=== PATIENT | female | born 1970 | race Caucasian/White ===

== ENCOUNTER → 2023-11-19 | Outpatient (CLI) | payer BC ==
[2023-11-19 16:07] LABS: BUN/Creat Ratio 17.43 Ratio (12.00-20.00); Blood Urea Nitrogen 12.2 mg/dL (9.0-27.0); Calcium 9.8 mg/dL (8.7-10.3); Carbon Dioxide 25.3 mmol/L (21.6-31.8); Chloride 102 mmol/L (96-109); Glucose 103 mg/dL (70-110); Potassium 4.1 mmol/L (3.5-5.5); Sodium 140 mmol/L (135-145)
[2023-11-19 16:22] LABS: Basophils # (A) 0.12 X 10*3/uL (0.00-0.10); Basophils % (A) 1.6 %; Eosinophils % (A) 1.3 %; HCT 44.3 % (37.2-46.3); HGB 14.1 g/dL (12.0-15.0); Lymphocytes # (A) 2.79 X 10*3/uL (0.90-5.00); Lymphocytes % (A) 36.3 %; MCH 27.9 pg (27.0-32.0); MCHC 31.8 g/dL (32.0-37.0); MCV 87.5 FL (80.0-97.0); Monocytes # (A) 0.56 X 10*3/uL (0.20-1.00); Monocytes % (A) 7.3 %; NRBC Per 100 WBC 0 X 10*3/uL (0.00-0.01); Neutrophils # (A) 4.08 X 10*3/uL (1.80-7.70); Neutrophils % (A) 53.1 %; Platelet Count 345 X 10*3/uL (140-440); RBC 5.06 X 10*6/uL (4.10-5.20); RDW 13.5 % (11.5-14.5); WBC 7.68 X 10*3/uL (4.50-10.00)
== END | disposition home or self-care (01) ==
LOC: LABWHC1 10:42
PROVIDERS: ATTEND Urology
DX: Z01.812 Encounter for preprocedural laboratory examination (principal); N20.0 Calculus of kidney
CPT/HCPCS: 36415; 80048; 85025

== ENCOUNTER → 2023-11-19 | Outpatient (CLI) | payer BC ==
--- NOTE | 2023-11-20 07:54 | XR ---
EXAMINATION TYPE: XR KUB DATE OF EXAM: 11/19/2023 COMPARISON: NONE HISTORY: Pain TECHNIQUE: One view abdominal series FINDINGS: The osseous structures are intact. The bowel gas pattern is nonspecific. Lung bases are clear. Right kidney: There is a 1.8 cm right renal pelvic calcification. There is a 4 mm mid pole right allison l calculus. Left kidney, there are 3 calcifications in the left kidney the largest measuring 3 mm. No suspicious calcifications along the paraspinal line. Calcifications in the pelvis are likely vascu lar. Calcification overlying the right superior pubic ramus likely outside the course of the syste m. Arthropathy of the hips. Mild degenerative change lumbosacral junction. IMPRESSION: 1. Bilateral nephrolithiasis. The largest is seen involving the right renal pelvis measuring 1.8 cm.
== END | disposition home or self-care (01) ==
LOC: RADXRMAIN 08:34
PROVIDERS: ATTEND Urology
DX: N20.0 Calculus of kidney (principal)
CPT/HCPCS: 74018

== ENCOUNTER 2023-11-20 10:27 | Day surgery (SDC) | payer BC ==
--- NOTE | 2023-11-19 21:59 | P.GSHP ---
History of Present Illness H&P Date: 11/19/23 Chief Complaint: Right hydronephrosis The patient is a 53-year-old white female with a history of urolithiasis. She states that her calculi are of calcium composition, and that she has undergone successful ESWL in the past. She has recently experienced vague right-sided dis comfort as well as urinary urgency. Ultrasound showed evidence of right hydronephrosis due to a UPJ calculus. KUB x-ray reveals a 10 x 19 mm right UPJ calculus at the level of L-2. I had a lengthy discussion with the patient regarding alternative treatment options, namely extracorporal shockwave lithotripsy (ESWL) versus ureteroscopy with laser lithotripsy. After reviewing the pros and cons of each in great detail, the patient has elected to undergo the latter. - Constitutional Constitutional: Denies chills, Denies fever - Gastrointestinal Gastrointestinal: Denies nausea, Denies vomiting - Genitourinary (Female) Genitourinary: Reports kidney stones, Denies dysuria, Denies hematuria Past Medical History Past Medical History: Diabetes Mellitus, Hypertension Additional Past Medical History / Comment(s): ovarian cyst, endometriosis pre diabetic, kidney stones History of Any Multi-Drug Resistant Organisms: None Reported Past Surgical History: Hysterectomy, Uterine Ablation Additional Past Surgical History / Comment(s): rt oophorectomy, fibroids removed from uterus Past Anesthesia/Blood Transfusion Reactions: Motion Sickness, Postoperative Nausea & Vomiting (PONV) Additional Past Anesthesia/Blood Transfusion Reaction / Comment(s): took longer to come out Smoking Status: Never smoker - Past Family History Mother Family Medical History: No Reported History Brother(s) Family Medical History: Cancer Additional Family Medical History / Comment(s): prostate Medications and Allergies Home Medications Medication Instructions Recorded Confirmed Type Atorvastatin Calcium 10 mg PO DAILY 11/19/23 11/19/23 History Multivitamins, Thera [Multivitamin 1 tab PO DAILY 11/19/23 11/19/23 History (formulary)] metFORMIN HCL 1,000 mg PO BID 11/19/23 11/19/23 History Allergies Allergy/AdvReac Type Severity Reaction Status Date / Time latex Allergy Itching Verified 11/19/23 10:46 Surgical - Exam - General well developed, well nourished, no distress - Neck no masses, trachea midline - Respiratory normal respiratory effort - Abdomen Abdomen: soft, non tender, no guarding, no rigid, no rebound - Psychiatric oriented to time, oriented to person, oriented to place, speech is normal, memory intact Results - Imaging Abdominal x-ray: report reviewed, image reviewed US - kidney/bladder: report reviewed Assessment and Plan (1) Calculus of kidney Status: Acute Code(s): N20.0 - CALCULUS OF KIDNEY SNOMED Code(s): 00370959 (2) Hydronephrosis with renal and ureteral calculous obstruction Status: Acute Code(s): N13.2 - HYDRONEPHROSIS WITH RENAL AND URETERAL CALCULOUS OBSTRUCTION SNOMED Code(s): 089305125 Plan: Cystoscopy, right retrograde pyelogram, right ureteroscopy with Holmium laser lithotripsy and possible stone basketing, right ureteral stent insertion. The procedure has been reviewed in detail with the patient. She has been made aware of potential risks, which include anesthesia, bleeding, infection, and ureteral injury. She is also aware of the possible need for a secondary procedure, given the stone burden.
[2023-11-20] MEDS: LACTATED RINGERS 1,000 ML IV ONE ×2 (10:57→12:59)
[2023-11-20 11:07] LABS: Glucose,Whole Blood 109 mg/dL (70-110)
[2023-11-20] MEDS: ONDANSETRON 4 MG/2 ML VIAL ONE (11:10)
[2023-11-20] MEDS: DEXAMETHASONE SOD PHOSPHATE 4 MG/ML 1 ML VIAL IVP ONE (11:10)
[2023-11-20] MEDS: SCOPOLAMINE 1 MG/72 HR PATCH TRANSDERM ONE (11:12)
[2023-11-20 11:33] VITALS: RESP 16
[2023-11-20] MEDS ORDERED: LIDOCAINE 1% INJ 10MG/ML (20 ML MDV) ONE (11:47)
[2023-11-20] MEDS ORDERED: fentaNYL (PF) 50 MCG/ML 2 ML AMP ONE (11:47)
[2023-11-20] MEDS ORDERED: KETOROLAC 30 MG/ML 1 ML VIAL ONE (11:47)
[2023-11-20] MEDS ORDERED: MIDAZOLAM 2 MG/2 ML VIAL ONE (11:47)
[2023-11-20] MEDS ORDERED: PROPOFOL 10 MG/ML 20 ML VIAL IV ONE (11:47)
[2023-11-20] MEDS: IOPAMIDOL-370 100ML BTL MISCELLANE ONE (12:12)
[2023-11-20 14:21] VITALS: TEMP 98.1
--- NOTE | 2023-11-20 14:57 | FL ---
Fluoroscopy INDICATION: Pain lithotripsy FINDINGS: Fluoroscopy time: 38 seconds. Total dose area product (DAP) in uGy*m?, mGy*cm? (or similar): 0.47207 Images obtained: 6. IMPRESSION: 1. Documentation of fluoroscopy.
[2023-11-20 15:43] VITALS: BP 164/95; PULSE 65
--- NOTE | 2023-11-20 19:32 | P.OP ---
Date of Procedure: 11/20/23 Preoperative Diagnosis: Right ureteral calculus, right renal calculus Postoperative Diagnosis: Same Procedure(s) Performed: Cystoscopy, right retrograde pyelogram, right ureteroscopy with holmium laser lithotripsy and stone basketing, right ureteral stent insertion Anesthesia: RAJANA Surgeon: Nikita Lucio Estimated Blood Loss (ml): 10 IV fluids (ml): 1,500 Condition: stable Disposition: PACU Indications for Procedure: The patient is a 53-year-old white female with a history of urolithiasis. She states that her calculi are of calcium composition, and that she has undergone successful ESWL in the past. She has recently experienced vague right-sided discomfort as well as urinary urgency. Ultrasound showed evidence of right hydronephrosis due to a UPJ calculus. KUB x-ray reveals a 10 x 19 mm right UPJ calculus at the level of L-2. I had a lengthy discussion with the patient regarding alternative treatment options, namely extracorporal shockwave lithotripsy (ESWL) versus ureteroscopy with laser lithotripsy. After reviewing the pros and cons of each in great detail, the patient has elected to undergo the latter. KUB x-ray also shows a several millimeter right mid to lower pole renal calculus. Operative Findings: Large right proximal ureteral calculus, impacted and adherent to the surrounding mucosa, removed completely. Right lower pole renal calculus, fragmented with the largest fragments removed via stone basketing. Description of Procedure: The patient was taken to the operating room and placed in the dorsolithotomy position, with legs supported in Fadi stirrups. The external genitalia was prepped and draped sterilely. The 30 lens was used to introduce the 21-Qatari Courtney cystoscopic sheath through the urethra and into the bladder under direct vision. The bladder was examined in its entirety. Both ureteral orifices were normal anatomic location and configuration. No tumors or foreign bodies were seen. Using a 10 Qatari cone-tip catheter, a right retrograde pyelogram was performed. Contrast passed up to the right proximal ureteral calculus. The ureter distal to this appeared normal. A 0.038 inch Glidewire was passed through the cystoscope. The ureteral orifice was cannulated, and the Glidewire was advanced beyond the calculus and up to the renal pelvis. The cystoscope was removed, and an 11/13-Qatari ureteral access catheter was passed over the wire, up to the proximal ureter. The [employer] flexible ureteroscope was then passed through the ureteral access catheter sheath, up to the stone. The 272 micron Holmium laser probe was passed through the ureteroscope, and lithotripsy was performed. The central portion of the calculus was initially fragmented using a dusting mode. It became apparent that the calculus was adherent to the surrounding mucosa, and in fact medially the mucosa had begun to grow over the distal aspect of the calculus. As the perimeter of the calculus began to fragment, the laser fiber was used to pry the calculus away from the mucosa so that the calculus could be safely lasered without injuring the ureter. In this manner, it was possible to fragment the entire calculus. Examination of the ureter at this point showed evidence of inflammation as a result of the calculus impaction, but no evidence of iatrogenic ureteral trauma. At this point, the ureteroscope was advanced into the kidney. There was obvious evidence of hydronephrosis. A calculus measuring several millimeters in size was located within a lower pole calyx. The calculus was fragmented, and the only sizable fragment was removed using a 1.9 Qatari 0 tip nitinol basket. Pullout ureteroscopy showed no residual calculi within the ureter, and no evidence of ureteral trauma. The cystoscope was replaced into the bladder. The Glidewire was advanced up to the right renal pelvis. A 24 cm, 6 Qatari double-J ureteral stent was placed over the wire. Proper stent positioning was verified fluoroscopically and endoscopically. The bladder was emptied and the cystoscope removed. Calculus fragments were removed were sent for chemical analysis. The patient tolerated the procedure well and was taken to the recovery room in stable condition. [employer] Report: Procedure Acuity: Semi-Urgent Stone Size and Location: 10 x 19 mm, right proximal ureter Ureteral Dilation: No Ureteral Access Sheath Used: Yes Stone Sent for Analysis: Yes All Stones/Fragments Were Removed with a Basket: No Complications: No Preoperative Antibiotics Given: Yes Stent Placed: Yes If Stent Placed, Was String Left Attached: No If Stent Placed, When is it to be Removed: 1 month Discharge Medications: Toradol, tamsulosin, tolterodine
== END 2023-11-20 15:47 | disposition home or self-care (01) ==
LOC: OR 10:27
PROVIDERS: ATTEND Urology
DX: N13.2 Hydronephrosis with renal and ureteral calculous obstruction (principal); I10 Essential (primary) hypertension; E78.5 Hyperlipidemia, unspecified; E11.9 Type 2 diabetes mellitus without complications; Z87.442 Personal history of urinary calculi; Z90.710 Acquired absence of both cervix and uterus; Z79.84 Long term (current) use of oral hypoglycemic drugs; Z91.040 Latex allergy status; Z98.890 Other specified postprocedural states; Z79.899 Other long term (current) drug therapy
CPT/HCPCS: 82365; 52356; C2625; C1758; C1769; J2250; J1100; J0690; J2405; J2001; J3010; J1885; J2704; Q9967

== ENCOUNTER → 2024-01-22 | Outpatient (CLI) | payer BC ==
--- NOTE | 2024-01-22 10:19 | XR ---
EXAMINATION TYPE: XR KUB DATE OF EXAM: 01/22/2024 Comparison: None Clinical History: 53-year-old female N13.2 HYDRONEPHROSIS WITH RENAL AND URETERAL CALC Findings: Scattered moderate stool. A couple calcifications left side of the pelvis measuring up to 5 mm are un changed. 5 mm calcification left mid abdomen. The previous large calcification right paramedian mid a bdomen measuring 1.8 cm no longer seen. Otherwise, bowel content largely obscures the right renal sha adele. Impression: 1. The previous 1.8 cm calcification right paramedian mid abdomen is no longer seen. 2. 5 mm nonobstructive left renal stone.
--- NOTE | 2024-01-22 14:23 | US ---
EXAMINATION TYPE: US kidneys/renal and bladder DATE OF EXAM: 01/22/2024 COMPARISON: XR 11/19/2023 CLINICAL INDICATION: Female, 53 years old with history of N13.2 HYDRONEPHROSIS WITH RENAL AND URETERA L CALC; Surgery for right kidney stone 2 months ago. EXAM MEASUREMENTS: Right Kidney: 9.8 x 4.9 x 4.8 cm Left Kidney: 11.2 x 5.7 x 6.4 cm Right Kidney: Appearance of hydronephrosis. Hyperechoic focus seen medially: 0.6 x 0.4 x 0.4 cm. Left Kidney: -2 hyperechoic foci seen within the upper pole: #1 measures: 0.3 x 0.4 x 0.4 cm. #2 measures: 0.4 x 0.4 x 0.3 cm. Bladder: Appears anechoic. Bilateral Jets seen: Yes IMPRESSION: 1. Mild right hydronephrosis. 2. Small hyperechoic foci in the medial right kidney and within the left kidney but no definite shado wing calcifications. 3. Bladder jets identified. 4 no solid renal mass.
== END | disposition home or self-care (01) ==
LOC: RADUSWWP 09:28
PROVIDERS: ATTEND Urology
DX: N13.2 Hydronephrosis with renal and ureteral calculous obstruction (principal); N28.89 Other specified disorders of kidney and ureter
CPT/HCPCS: 74018; 76770

== ENCOUNTER → 2024-03-26 | Outpatient (CLI) | payer BC ==
--- NOTE | 2024-04-27 18:12 | US ---
Patient: Katharine Collins Ordering Physician: Unknown, Unknown ID: [id number] Phone, Pager: Phone: N /A Pager: N/A : [phone] Age/Gender: 54Y, F Primary Location: N/A Procedure: US kidneys/renal and bladder Study Date: 03/26/2024 1:20:00 PM EXAMINATION TYPE: US kidneys/renal and bladder DATE OF EXAM: 04/04/2024 COMPARISON: 01/22/2024. CLINICAL INDICATION: Hydronephrosis with calculus Technique: Grayscale and color Doppler imaging of the kidneys and bladder. Right Kidney: 10.0 x 5.4 cm no obstructive uropathy or renal calculus. Cortical medullary differenti ation maintained. Left Kidney: 11.1 x 5.8 cm no obstructive uropathy or renal calculus. Cortical medullary differentiat ion maintained. Bilateral Urinary bladder is within normal limits. There is no evidence for hydronephrosis at this point in time. No nephrolithiasis is seen. No shaneka s are identified. The urinary bladder is anechoic. Bilateral ureteral jets are seen. IMPRESSION: No evidence for obstructive uropathy or renal calculus.
== END | disposition home or self-care (01) ==
LOC: RADUSWWP 10:07
PROVIDERS: ATTEND Urology
DX: N13.2 Hydronephrosis with renal and ureteral calculous obstruction (principal)
CPT/HCPCS: 76770

== ENCOUNTER → 2024-04-05 | Outpatient (CLI) | payer BC | END | disposition home or self-care (01) | LOC: LABWHC1 16:05 | PROVIDERS: ATTEND Urology | DX: E83.52 Hypercalcemia (principal) | CPT/HCPCS: 36415; 83970 ==

== ENCOUNTER → 2024-06-10 | Outpatient (CLI) | payer BC ==
[2024-06-10 20:44] LABS: Anion Gap 13.5 mmol/L (4.00-12.00); Carbon Dioxide 27.5 mmol/L (21.6-31.8); Potassium 4.1 mmol/L (3.5-5.5)
== END | disposition home or self-care (01) ==
LOC: LABWHC1 14:39
PROVIDERS: ATTEND Urology
DX: N20.0 Calculus of kidney (principal)
CPT/HCPCS: 36415; 80051